=== PATIENT | female | born 1990 | race African-American/Black ===

== ENCOUNTER 2017-08-17 00:53 | Emergency (ER) | payer BC, MEDICAID ==
[2017-08-17 00:59] VITALS: BP 132/84
[2017-08-17 01:23] LABS: APPEARANCE,URINE SLIGHTLY-CLOUDY; BILIRUBIN,URINE NEGATIVE (NEGATIVE); COLOR,URINE YELLOW; GLUCOSE, URINE NEGATIVE (NEGATIVE); KETONES,URINE NEGATIVE (NEGATIVE); LEUKOCYTE ESTERASE,URINE NEGATIVE (NEGATIVE); NITRITE,URINE NEGATIVE (NEGATIVE); PROTEIN,URINE NEGATIVE (NEGATIVE); URINE SPECIFIC GRAVITY 1.023; UROBILINOGEN,URINE NEGATIVE mg/dL (<2.0)
--- NOTE | 2017-08-17 01:49 | ER Document Report ---
ED General - General Chief Complaint: Urinary Problem Stated Complaint: POSSIBLE UTI Time Seen by Provider: 08/17/17 01:12 Notes: Patient is a 26-year-old female without past medical history who presents with 24 hours of intermittent lower abdominal cramping as well as cloudy urine. Patient states she noted the clotted urine today at work is what prompted to come to the emergency department for evaluation for possible urinary tract infection. She states she has had similar symptoms in the past with urinary tract infection. She notes the abdominal pain is a mild, aching, cramping pain to her lower abdomen. Nothing improves or worsens the pain. She denies that the pain is present at time of my assessment. She has not seen a primary care doctor regarding today's concerns. She denies any fever, flank pain, vomiting or other constitutional symptoms. She denies any concern for possible sexually transmitted infection. TRAVEL OUTSIDE OF THE [place] IN LAST 30 DAYS: No - Related Data Allergies/Adverse Reactions: No Known Allergies Allergy (Verified 08/17/17 00:56) Past Medical History - General Information source: Patient - Social History Smoking Status: Never Smoker Frequency of alcohol use: None Drug Abuse: None Lives with: Spouse/Significant other Family History: Reviewed & Not Pertinent Patient has suicidal ideation: No Patient has homicidal ideation: No Renal/ Medical History: Denies: Hx Peritoneal Dialysis - Immunizations Hx Diphtheria, Pertussis, Tetanus Vaccination: Yes Review of Systems - Review of Systems Notes: Constitutional: Negative for fever. HENT: Negative for sore throat. Eyes: Negative for visual changes. Cardiovascular: Negative for chest pain. Respiratory: Negative for shortness of breath. Gastrointestinal: Positive for lower abdominal cramping Genitourinary: Positive for dysuria. Musculoskeletal: Negative for back pain. Skin: Negative for rash. Neurological: Negative for headaches, weakness or numbness. 10 point ROS negative except as marked above and in HPI. Physical Exam - Vital signs Vitals: Temp Pulse Resp BP Pulse Ox 97.6 F 91 18 132/84 H 100 08/17/17 00:58 08/17/17 00:58 08/17/17 00:58 08/17/17 00:58 08/17/17 00:58 Interpretation: Normal Notes: PHYSICAL EXAMINATION: GENERAL: Well-appearing, well-nourished and in no acute distress. HEAD: Atraumatic, normocephalic. EYES: Pupils equal round and reactive to light, extraocular movements intact, sclera anicteric, conjunctiva are normal. ENT: nares patent, oropharynx clear without exudates. Moist mucous membranes. NECK: Normal range of motion, supple without lymphadenopathy LUNGS: Breath sounds clear to auscultation bilaterally and equal. No wheezes rales or rhonchi. HEART: Regular rate and rhythm without murmurs ABDOMEN: Soft, nontender, normoactive bowel sounds. No guarding, no rebound. No masses appreciated. EXTREMITIES: Normal range of motion, no pitting or edema. No cyanosis. NEUROLOGICAL: No focal neurological deficits. Moves all extremities spontaneously and on command. PSYCH: Normal mood, normal affect. SKIN: Warm, Dry, normal turgor, no rashes or lesions noted. Course - Re-evaluation Re-evalutation: 08/17/17 01:47 Patient presents with mild cloudiness to her urine with concern that this may be a urinary tract infection. She has noticed she has had some slight lower abdominal discomfort but denies any active abdominal pain at this time. Urinalysis clear without any evidence of infection. She is not . She denies any concern for STI. She has no focal abdominal tenderness on examination and no clinical history to suggest an acute appendicitis, tubo- ovarian abscess, pelvic inflammatory disease, and she has no upper abdominal tenderness to suggest acute biliary pathology or pancreatitis. No indication for further labs or imaging. At this time will discharge with return precautions and follow-up recommendations. Verbal discharge instructions given a the bedside and opportunity for questions given. Medication warnings reviewed. Patient is in agreement with this plan and has verbalized understanding of return precautions and the need for primary care follow-up in the next 24-72 hours. - Vital Signs Vital signs: Temp Pulse Resp BP Pulse Ox 97.6 F 91 18 132/84 H 100 08/17/17 00:58 08/17/17 00:58 08/17/17 00:58 08/17/17 00:58 08/17/17 00:58 Discharge - Discharge Clinical Impression: Abdominal cramping, Cloudy urine Condition: Good Disposition: HOME, SELF-CARE Additional Instructions: Your urine does not appear infected today. Please follow-up with your primary care doctor in the next several days if you continue to have symptoms. Return if you have worsening of your abdominal cramping, fever, vomiting, or any other symptoms that are worrisome to you.
== END 2017-08-17 01:57 | disposition home or self-care (01) ==
LOC: ER 00:53
DX: R10.9 Unspecified abdominal pain (principal); R82.90 Unspecified abnormal findings in urine
CPT/HCPCS: 81001; 81025; 99283

== ENCOUNTER 2017-10-02 22:06 | Emergency (ER) | payer SELFPAY ==
[2017-10-02] MEDS ORDERED: IBUPROFEN 800 MG TABLET PO ONE (23:16)
[2017-10-02] MEDS ORDERED: PENICILLIN V POTASSIUM 500 MG TABLET PO ONE (23:16)
--- NOTE | 2017-10-02 23:18 | ER Document Report ---
HPI - HPI Patient complains to provider of: Sore throat Onset: Other - Several days Onset/Duration: Worse Pain Level: 4 Context: 27-year-old female complaining of sore throat and fever. No runny nose or cough. Associated Symptoms: None Exacerbated by: Other - Swallowing Relieved by: Denies Similar symptoms previously: Yes Recently seen / treated by doctor: No - ROS ROS below otherwise negative: Yes Systems Reviewed and Negative: Yes All other systems reviewed and negative - EENT EENT: REPORTS: Sore Throat - REPRODUCTIVE LMP: 09/29/2017 Past Medical History - General Information source: Patient - Social History Smoking Status: Current Every Day Smoker Frequency of alcohol use: None Drug Abuse: None Lives with: Family Family History: Reviewed & Not Pertinent Patient has suicidal ideation: No Patient has homicidal ideation: No - Medical History Medical History: Negative Renal/ Medical History: Denies: Hx Peritoneal Dialysis Surgical Hx: Negative - Immunizations Hx Diphtheria, Pertussis, Tetanus Vaccination: Yes Vertical Provider Document - CONSTITUTIONAL Agree With Documented VS: Yes Exam Limitations: No Limitations - INFECTION CONTROL TRAVEL OUTSIDE OF THE [place] IN LAST 30 DAYS: No - HEENT HEENT: Pharyngeal Erythema. negative: Conjuctival Injection, Tympanic Membrane Red - NECK Neck: Supple, Lymphadenopathy-Left - anr, Lymphadenopathy-Right - ant - RESPIRATORY Respiratory: Breath Sounds Normal, No Respiratory Distress - CARDIOVASCULAR Cardiovascular: Regular Rate, Regular Rhythm - GI/ABDOMEN Gastrointestinal: Abdomen Soft, Abdomen Non-Tender, No Organomegaly - MUSCULOSKELETAL/EXTREMETIES Musculoskeletal/Extremeties: MAEW - NEURO Level of Consciousness: Awake, Alert, Appropriate Motor/Sensory: No Motor Deficit, No Sensory Deficit - DERM Integumentary: Warm, Dry, No Rash Discharge - Discharge Clinical Impression: Sore throat Condition: Good Disposition: HOME, SELF-CARE Instructions: Acetaminophen, Anti-Inflammatory Medication ([facility]), Penicillin V K ([facility]), Sore Throat ([facility]) Additional Instructions: Plenty of fluids Tylenol Penicillin until it is gone Motrin for pain Return to the emergency room for any worsening of the symptoms Prescriptions: Ibuprofen [Motrin 800 mg Tablet] 800 mg PO Q8HP PRN #30 tablet PRN Reason: Penicillin V Potassium [Penicillin Vk 500 mg Tablet] 500 mg PO QID #40 tablet Forms: Return to Work Referrals: JERRI GOEL MD [Primary Care Provider] - Follow up as needed
[2017-10-02 23:38] VITALS: BP 125/83
== END 2017-10-02 23:38 | disposition home or self-care (01) ==
LOC: ER 22:06
DX: J02.9 Acute pharyngitis, unspecified (principal); R50.9 Fever, unspecified; F17.200 Nicotine dependence, unspecified, uncomplicated
CPT/HCPCS: 99282

== ENCOUNTER 2018-06-07 08:43 | Emergency (ER) | payer SELFPAY ==
[2018-06-07 09:46] LABS: ABSOLUTE LYMPHOCYTES (AUTO) 0.9 10^3/uL (0.5-4.7); ABSOLUTE MONOCYTES (AUTO) 0.6 10^3/uL (0.1-1.4); ABSOLUTE NEUT (AUTO) 4.7 10^3/uL (1.7-8.2); BASOPHILS % (AUTO) 0.2 % (0-2); EOSINOPHILS % (AUTO) 0.2 % (0-6); HEMOGLOBIN 14.9 g/dL (12.0-15.5); LYMPHOCYTES % (AUTO) 15.2 % (13-45); MEAN CORPUSCULAR HEMOGLOBIN 30.9 pg (27.0-33.4); MEAN CORPUSCULAR HGB CONC 33.8 g/dL (32.0-36.0); MEAN CORPUSCULAR VOLUME 92 fl (80-97); MONOCYTES % (AUTO) 9.3 % (3-13); PLATELET COUNT 222 10^3/uL (150-450); RED BLOOD COUNT 4.81 10^6/uL (3.72-5.28); RED CELL DISTRIBUTION WIDTH 13.3 % (11.5-14.0); SEGMENTED NEUTROPHILS % (AUTO) 75.1 % (42-78); TOTAL CELLS COUNTED % (AUTO) 100 %; WHITE BLOOD COUNT 6.2 10^3/uL (4.0-10.5)
--- NOTE | 2018-06-07 10:01 | ER Document Report ---
ED GI/ - General Mode of Arrival: Ambulatory Information source: Patient TRAVEL OUTSIDE OF THE [place] IN LAST 30 DAYS: No <ISADORA FONG - Last Filed: 06/07/18 09:45> <RANI POWELL - Last Filed: 06/07/18 11:24> - General Chief Complaint: Abdominal Pain Stated Complaint: ABDOMINAL PAIN Time Seen by Provider: 06/07/18 09:08 Notes: 27 year old female that presents to the emergency department today with complaints of upper abdominal pain which began yesterday morning after eating cereal. Patient states the pain is localized in her upper abdomen. Patient states she feels very gassy. Patient states she had one episode of watery diarrhea this morning. Patient also mentions she had a very "nasty foul- smelling" burp this morning. (ISADORA FONG) - Related Data Allergies/Adverse Reactions: No Known Allergies Allergy (Verified 06/07/18 08:47) Past Medical History - General Information source: Patient - Social History Smoking Status: Current Some Day Smoker Frequency of alcohol use: None Drug Abuse: None Lives with: Family Family History: Reviewed & Not Pertinent Patient has suicidal ideation: No Patient has homicidal ideation: No Surgical Hx: Negative - Immunizations Hx Diphtheria, Pertussis, Tetanus Vaccination: Yes <ISADORA FONG - Last Filed: 06/07/18 09:45> Review of Systems - Review of Systems Constitutional: No symptoms reported EENT: No symptoms reported Cardiovascular: No symptoms reported Respiratory: No symptoms reported Gastrointestinal: See HPI, Abdominal pain, Diarrhea, Other - "feels gassy" Genitourinary: No symptoms reported Female Genitourinary: No symptoms reported Musculoskeletal: No symptoms reported Skin: No symptoms reported Hematologic/Lymphatic: No symptoms reported Neurological/Psychological: No symptoms reported -: Yes All other systems reviewed and negative <ISADORA FONG - Last Filed: 06/07/18 09:45> Physical Exam <ISADORA FONG - Last Filed: 06/07/18 09:45> <RANI POWELL - Last Filed: 06/07/18 11:24> - Vital signs Vitals: Temp Pulse Resp BP Pulse Ox 98.4 F 97 18 129/76 H 96 06/07/18 08:47 06/07/18 08:47 06/07/18 08:47 06/07/18 08:47 06/07/18 08:47 - Notes Notes: Physical Exam: General: Alert, appears well. HEENT: Normocephalic. Atraumatic. PERRL. Extraocular movements intact. Oropharynx clear. Neck: Supple. Non-tender. Respiratory: No respiratory distress. Clear and equal breath sounds bilaterally. Cardiovascular: Regular rate and rhythm. Abdominal: Non-tender. No distension. Hyperactive Bowel Sounds, very gassy. Back: Non-tender. No deformity or step off. Extremities: Moves all four extremities. Upper extremities: Normal inspection. Normal ROM. Lower extremities: Normal inspection. No edema. Normal ROM. Neurological: Normal cognition. AAOx4. Normal speech. Psychological: Normal affect. Normal Mood. Skin: Warm. Dry. Normal color. (ISADORA FONG) Course - Laboratory Result Diagrams: 06/07/18 09:25 06/07/18 09:25 <ISADORA FONG - Last Filed: 06/07/18 09:45> - Laboratory Result Diagrams: 06/07/18 09:25 06/07/18 09:25 - Diagnostic Test Radiology reviewed: Image reviewed - Review of images shows several small air- fluid levels suggesting a small bowel ileus, Reports reviewed - Acute abdominal series is read as no acute process. <RANI POWELL - Last Filed: 06/07/18 11:24> - Vital Signs Vital signs: Temp Pulse Resp BP Pulse Ox 98.4 F 97 18 129/76 H 96 06/07/18 08:47 06/07/18 08:47 06/07/18 08:47 06/07/18 08:47 06/07/18 08:47 - Laboratory Laboratory results interpreted by me: 06/07/18 06/07/18 09:25 09:56 BUN 6 L Urine Ketones TRACE H Discharge <ISADORA FONG - Last Filed: 06/07/18 09:45> <RANI POWELL - Last Filed: 06/07/18 11:24> - Discharge Clinical Impression: Ileus, Bloating symptom Condition: Stable Disposition: HOME, SELF-CARE Additional Instructions: Gastroenteritis You most likely have gastroenteritis. This is an irritation of the stomach and intestinal tract. It's usually caused by a virus, but can also be caused by bacteria, toxins that cause food poisoning, or excessive alcohol intake. Symptoms may include fever, painful abdominal cramps, nausea, vomiting , and diarrhea. Start with small amounts (two to six ounces) of clear liquids (soft drinks , herb teas, broth, etc). Try to take fluids frequently even if you are vomiting, to prevent dehydration. When liquids are being consumed successfully , advance to small amounts of bland food (mashed potato, toast) for 6 - 12 hours. Gastroenteritis rarely requires medication. It goes away by itself. Use good handwashing so you don't spread germs. Wash underwear in very hot water. If symptoms are severe, talk to the doctor. Call your physician if blood appears in your vomitus or stool, if vomiting lasts longer than 24 hours, if the abdominal pain worsens or becomes localized to one area, or if you develop high fever. You most likely have a viral gastroenteritis causing your nausea and bloating sensation with some diarrhea. You should drink small sips of cool clear liquids throughout the day, eating food may make your symptoms worse. Follow-up with your doctor if not improving over the next 1-2 days. RETURN TO THE EMERGENCY ROOM IF ANY NEW OR WORSENING SYMPTOMS. Referrals: JERRI GOEL MD [ACTIVE STAFF] - Follow up as needed Scribe Attestation: 06/07/18 10:26 I personally performed the services described in the documentation, reviewed and edited the documentation which was dictated to the scribe in my presence, and it accurately records my words and actions. (RANI POWELL) Scribe Documentation - Scribe Written by Erick:: Erick Woodward, 06/07/2018 1012 acting as scribe for :: Lisa <ISADORA FONG - Last Filed: 06/07/18 09:45>
[2018-06-07 10:05] LABS: ALANINE AMINOTRANSFERASE 26 U/L (9-52); ALBUMIN 3.6 g/dL (3.5-5.0); ALKALINE PHOSPHATASE 52 U/L (38-126); ANION GAP 12 (5-19); ASPARTATE AMINO TRANSFERASE 22 U/L (14-36); BILIRUBIN,DIRECT 0.1 mg/dL (0.0-0.4); BILIRUBIN,TOTAL 0.3 mg/dL (0.2-1.3); BLOOD UREA NITROGEN 6 mg/dL (7-20); CALCIUM 8.7 mg/dL (8.4-10.2); CARBON DIOXIDE 22 mmol/L (22-30); CHLORIDE 106 mmol/L (98-107); GLUCOSE 81 mg/dL (75-110); LIPASE 41.8 U/L (23-300); POTASSIUM 4.4 mmol/L (3.6-5.0); SODIUM 140.2 mmol/L (137-145); TOTAL PROTEIN 6.4 g/dL (6.3-8.2)
[2018-06-07 10:25] LABS: APPEARANCE,URINE SLIGHTLY-CLOUDY; BILIRUBIN,URINE NEGATIVE (NEGATIVE); COLOR,URINE YELLOW; GLUCOSE, URINE NEGATIVE (NEGATIVE); KETONES,URINE TRACE mg/dL (NEGATIVE); LEUKOCYTE ESTERASE,URINE NEGATIVE (NEGATIVE); NITRITE,URINE NEGATIVE (NEGATIVE); PROTEIN,URINE NEGATIVE (NEGATIVE); URINE SPECIFIC GRAVITY 1.023; UROBILINOGEN,URINE NEGATIVE mg/dL (<2.0)
--- NOTE | 2018-06-07 11:14 | RADIOLOGY REPORT (SQ) ---
EXAM DESCRIPTION: ACUTE ABDOMEN SERIES COMPLETED DATE/TIME: 06/07/2018 10:43 am REASON FOR STUDY: Abdominal pain COMPARISON: 07/11/2016 NUMBER OF VIEWS: Three views. TECHNIQUE: Frontal chest, supine abdomen and upright abdomen radiographic images acquired. LIMITATIONS: None. FINDINGS: CHEST: Lungs clear of infiltrates. FREE AIR: None. No abnormal gas collections. BOWEL GAS PATTERN: Nonobstructive pattern. No dilated loops or air fluid levels. CALCIFICATIONS: No suspicious calcifications. HARDWARE: None in the abdomen. SOFT TISSUES: No gross mass or suggestion of organomegaly. BONES: No acute fracture. No worrisome bone lesions. OTHER: No other significant finding. IMPRESSION: NO RADIOGRAPHIC EVIDENCE FOR ACUTE ABDOMINAL DISEASE. TECHNICAL DOCUMENTATION: JOB ID: [id number] [employer]- All Rights Reserved Reading location - IP/workstation name: [email or web address]
[2018-06-07 12:36] VITALS: BP 127/74
== END 2018-06-07 12:14 | disposition home or self-care (01) ==
LOC: ER 08:43
DX: K56.7 Ileus, unspecified (principal); R10.10 Upper abdominal pain, unspecified; R19.7 Diarrhea, unspecified; F17.200 Nicotine dependence, unspecified, uncomplicated
CPT/HCPCS: 36415; 74022; 80053; 81001; 83690; 84703; 85025; 99284

== ENCOUNTER 2018-10-11 14:49 | Emergency (ER) | payer SELFPAY ==
[2018-10-11] MEDS ORDERED: IBUPROFEN 800 MG TABLET PO ONE (16:02)
--- NOTE | 2018-10-11 16:03 | ER Document Report ---
HPI - HPI Patient complains to provider of: Cold symptoms Time Seen by Provider: 10/11/18 15:56 Onset: Yesterday Onset/Duration: Gradual Quality of pain: Achy Pain Level: 2 Context: Patient presents complaining of sore throat cough and body aches that started yesterday. Patient denies any fever. Patient denies any nausea vomiting or diarrhea. Associated Symptoms: Body/muscle aches, Nonproductive cough, Sore throat. denies: Earache, Fever, Headache, Nausea, Vomiting Exacerbated by: Denies Relieved by: Denies Similar symptoms previously: Yes Recently seen / treated by doctor: No - ROS ROS below otherwise negative: Yes Systems Reviewed and Negative: Yes All other systems reviewed and negative - CONSTITUTIONAL Constitutional: DENIES: Fever, Chills - EENT EENT: REPORTS: Sore Throat. DENIES: Ear Pain, Eye problems - NEURO Neurology: REPORTS: Headache - YESTERDAY. DENIES: Weakness, Vision blurred, Dizzinesss / Vertigo - CARDIOVASCULAR Cardiovascular: DENIES: Chest pain - RESPIRATORY Respiratory: REPORTS: Coughing. DENIES: Trouble Breathing - GASTROINTESTINAL Gastrointestinal: DENIES: Abdominal Pain, Patient vomiting - URINARY Urinary: DENIES: Dysuria, Urgency, Frequency - REPRODUCTIVE Reproductive: DENIES: : - MUSCULOSKELETAL Musculoskeletal: DENIES: Extremity pain - DERM Skin Color: Normal Skin Problems: None Past Medical History - General Information source: Patient - Social History Smoking Status: Current Some Day Smoker Chew tobacco use (# tins/day): No Smoking Education Provided: Yes Frequency of alcohol use: None Drug Abuse: None Occupation: [employer] Family History: Reviewed & Not Pertinent Patient has suicidal ideation: No Patient has homicidal ideation: No - Medical History Medical History: Negative Renal/ Medical History: Denies: Hx Peritoneal Dialysis Surgical Hx: Negative - Immunizations Hx Diphtheria, Pertussis, Tetanus Vaccination: Yes Vertical Provider Document - CONSTITUTIONAL Agree With Documented VS: Yes Exam Limitations: No Limitations General Appearance: WD/WN, No Apparent Distress - INFECTION CONTROL TRAVEL OUTSIDE OF THE [place] IN LAST 30 DAYS: No - HEENT HEENT: Atraumatic, Normocephalic, Pharyngeal Tenderness. negative: Pharyngeal Exudate, Pharyngeal Erythema, Tympanic Membrane Red, Tympanic Membrane Bulging - NECK Neck: Normal Inspection, Supple. negative: Lymphadenopathy-Left, Lymphadenopathy-Right - RESPIRATORY Respiratory: Breath Sounds Normal, No Respiratory Distress, Chest Non-Tender - CARDIOVASCULAR Cardiovascular: Regular Rate, Regular Rhythm, No Murmur. negative: Tachycardia - BACK Back: Normal Inspection - MUSCULOSKELETAL/EXTREMETIES Musculoskeletal/Extremeties: MAEW - NEURO Level of Consciousness: Awake, Alert, Appropriate Motor/Sensory: No Motor Deficit - DERM Integumentary: Warm, Dry, No Rash Course - Re-evaluation Re-evalutation: 10/11/18 16:41 Patient's rapid strep test negative. Patient nontoxic in appearance. No concern for pneumonia. Patient without any fever at this time. Patient stable for discharge, good return precautions discussed - Vital Signs Vital signs: Temp Pulse Resp BP Pulse Ox 99 F 97 18 139/84 H 97 10/11/18 14:51 10/11/18 14:51 10/11/18 14:51 10/11/18 14:51 10/11/18 14:51 - Laboratory Laboratory results interpreted by me: 10/11/18 16:41 Labs- Entire Visit 10/11/18 16:00 Group A Strep Rapid NEGATIVE Discharge - Discharge Clinical Impression: Sore throat Upper respiratory infection Qualifiers: URI type: unspecified URI Qualified Code(s): J06.9 - Acute upper respiratory infection, unspecified Condition: Stable Disposition: HOME, SELF-CARE Instructions: Sore Throat ([facility]), Upper Respiratory Illness ([facility]) Additional Instructions: Return immediately for any new or worsening symptoms Followup with your primary care provider, call tomorrow to make a followup appointment Throat culture is pending, we will call if you need any different treatment Take Sudafed [id number] as directed to help with congestion symptoms Prescriptions: Benzonatate [Tessalon Perle 100 mg Capsule] 100 mg PO Q8HP PRN #20 cap PRN Reason: Naproxen [Naprosyn 250 Nmg Tablet] 1 tab PO BID #14 tablet Forms: Smoking Cessation Education, Return to Work Referrals: [facility] [Provider Group] - Follow up as needed
[2018-10-11 16:56] VITALS: BP 115/72
== END 2018-10-11 16:56 | disposition home or self-care (01) ==
LOC: ER 14:49
DX: J02.9 Acute pharyngitis, unspecified (principal); J06.9 Acute upper respiratory infection, unspecified; M79.10 Myalgia, unspecified site; R05 Cough; F17.200 Nicotine dependence, unspecified, uncomplicated
CPT/HCPCS: 87070; 87880; 99283

== ENCOUNTER 2020-05-15 18:29 | Emergency (ER) | payer BC ==
--- NOTE | 2020-05-15 19:14 | ER Document Report ---
ED Medical Screen (RME) - General Chief Complaint: Shortness Of Breath Stated Complaint: SHORTNESS OF BREATH Time Seen by Provider: 05/15/20 19:06 Mode of Arrival: Ambulatory Information source: Patient Notes: 29-year-old female presented to ED for complaint of cough. She states in May 09 she felt like she was coughing and sick so she went and got tested for COVID. She got the results today and they were positive. She states that after she got the test results she started coughing so she called EMS they told her she was fine but she stated she wanted to be seen anyway. She states she felt like she lost her breath after supper. I have greeted and performed a rapid initial assessment of this patient. A comprehensive ED assessment and evaluation of the patient, analysis of test results and completion of medical decision making process will be conducted by an additional ED providers. TRAVEL OUTSIDE OF THE [place] IN LAST 30 DAYS: No - Related Data Allergies/Adverse Reactions: No Known Allergies Allergy (Verified 10/11/18 14:49) Past Medical History Renal/ Medical History: Denies: Hx Peritoneal Dialysis - Immunizations Hx Diphtheria, Pertussis, Tetanus Vaccination: Yes Physical Exam - Vital signs Vitals: Temp Pulse Resp BP Pulse Ox 99.2 F 111 H 20 142/93 H 97 05/15/20 18:35 05/15/20 18:35 05/15/20 18:35 05/15/20 18:35 05/15/20 18:35 Course - Vital Signs Vital signs: Temp Pulse Resp BP Pulse Ox 99.2 F 111 H 20 142/93 H 97 05/15/20 18:35 05/15/20 18:35 05/15/20 18:35 05/15/20 18:35 05/15/20 18:35
[2020-05-15 19:48] VITALS: BP 134/82
--- NOTE | 2020-05-15 20:11 | ER Document Report ---
ED General - General Chief Complaint: Cough Stated Complaint: SHORTNESS OF BREATH Time Seen by Provider: 05/15/20 19:06 Mode of Arrival: Ambulatory Information source: Patient Notes: Patient is a 29-year-old -[place] female who is obese but has no other medical problems. She comes in today with a positive coronavirus test. She started to have some viral symptoms about 6 days ago. She found out today that she had a positive test. This evening while she was rushing around after dinner she noted that she was more fatigued and short of breath. She is feeling fine now. TRAVEL OUTSIDE OF THE [place] IN LAST 30 DAYS: No - Related Data Allergies/Adverse Reactions: No Known Allergies Allergy (Verified 10/11/18 14:49) Past Medical History - General Information source: Patient - Social History Smoking Status: Current Some Day Smoker Chew tobacco use (# tins/day): No Frequency of alcohol use: None Drug Abuse: None Family History: Reviewed & Not Pertinent Renal/ Medical History: Denies: Hx Peritoneal Dialysis - Immunizations Hx Diphtheria, Pertussis, Tetanus Vaccination: Yes Review of Systems - Review of Systems Notes: Constitutional: No fevers. No chills. EENT: No eye redness. No eye pain. No ear pain. No sore throat. Cardiovascular: No chest pain. No palpitations. Respiratory: +cough. +shortness of breath. No respiratory distress. Gastrointestinal: No abdominal pain. No nausea, vomiting, or diarrhea. Genitourinary: Atraumatic. No lesions. No pain. No discharge. Musculoskeletal: Atraumatic. No swelling. No deformities. Back pain Skin: No rash or lesions. Lymphatic: No swollen lymph nodes. Neurologic: No headache. No syncope. Psychiatric: No suicidal or homicidal ideation. Physical Exam - Vital signs Vitals: Temp Pulse Resp BP Pulse Ox 99.2 F 111 H 20 142/93 H 97 05/15/20 18:35 05/15/20 18:35 05/15/20 18:35 05/15/20 18:35 05/15/20 18:35 - Notes Notes: General: Well-developed, well-nourished. In no acute distress. Non-toxic appearing. Cardiac: Well-perfused. Regular rate and rhythm. No murmurs, rubs, or gallops. Pulmonary: No respiratory distress. No cyanosis. Bilateral lung lr are clear to auscultation. Abdominal: Non-distended. Non-rigid. Bowels sounds are present in all four quadrants. No guarding or rebound. HEENT: Head is atraumatic. Conjunctivae not reddened. No tearing. PERRL. EOMI. Orbits atraumatic. No periorbital swelling or erythema. Oropharynx is without erythema, swelling, or exudates. Neck: Supple. No adenopathy. No meningismus. Dermatologic: Warm with good turgor. No rash. Atraumatic. Chest: Atraumatic. No chest wall tenderness to palpation. Musculoskeletal: Moves all extremities well. No range of motion deficits. no muscular or joint tenderness. No paraspinal muscle tenderness. no midline spinal tenderness or step-off. Genitourinary: Examination deferred Neurologic: No gross neurologic deficits. Psychiatric: Normal mood. Course - Vital Signs Vital signs: Temp Pulse Resp BP Pulse Ox 99.8 F 94 18 134/82 H 99 05/15/20 19:46 05/15/20 19:46 05/15/20 19:46 05/15/20 19:46 05/15/20 19:46 Discharge - Discharge Clinical Impression: 2019 novel coronavirus disease (COVID-19), Elevated blood pressure reading Condition: Good Disposition: HOME, SELF-CARE Instructions: Viral Syndrome ([facility]), Fever ([facility]), Acetaminophen, Ibuprofen (General) ([facility]) Additional Instructions: Continue to treat fevers and/or body aches with Tylenol and ibuprofen. If you get short winded slowdown and sit and take some large easy breaths in and out. You may take 2 puffs of the albuterol inhaler every 4 hours as needed for cough or shortness of breath. You may use crri-wst-yojwloy Robitussin as needed for cough. If your breathing gets worse, you may return to the emergency department. Continue to quarantine yourself at home away from other non-sick individuals. The health department should notify you how long you are to remain in quarantine. Prescriptions: Albuterol Sulfate [Proair Hfa Inhalation Aerosol 8.5 gm Mdi] 2 puff IH Q4 PRN #1 mdi PRN Reason: Azithromycin [Zithromax] 500 mg PO DAILY 5 Days #10 tablet Forms: Elevated Blood Pressure
== END 2020-05-15 20:26 | disposition home or self-care (01) ==
LOC: ER 18:29
DX: U07.1 COVID-19 (principal); R05 Cough; R06.02 Shortness of breath; R03.0 Elevated blood-pressure reading, without diagnosis of hypertension; F17.200 Nicotine dependence, unspecified, uncomplicated
CPT/HCPCS: 99283